=== PATIENT | male | born 1975 | race Two or more races ===

== ENCOUNTER → 2018-03-26 | Outpatient (CLI) | payer BC ==
--- NOTE | 2018-03-26 11:50 | CONS ---
CONSULTATION DATE OF SERVICE: 03/26/2019 A 42-year-old gentleman who has been evaluated in the Sleep Center for possible obstructive sleep apnea-hypopnea syndrome. 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 until 9 a.m. on working days and usually from around 11 p.m. to 8 a.m. on weekends. No problem with falling asleep. No TV in bedroom. Patient has loud snoring and witnessed episodes of stopped breathing during the sleep according to his . Positive history of choking, dry mouth and sweating, although patient usually sleeps through the night without significant amount of awakenings and no history of nocturia. No history of hypnagogic hallucinations. Patient usually does not see dreams during the sleep at night. During the day, he may feel sleepiness. [place] Sleepiness Scale significantly increased to 12. He may take naps on days off, and during the naps he may see vivid dreams. For the last 5 years, he increased his weight around 35 pounds. PAST MEDICAL HISTORY: Positive for low testosterone level. According to patient, it was in the range of 220 at that period of time, which was about 1 year ago. Patient has low sexual desire. With treatment of testosterone, 1 injection in 3 weeks patient improved his desire and increase in amount of sex from 1 to 2 per week to 4 per week and level of testosterone increased on injections. With testosterone quality, his sleep improved and he started to have episodes of morning erections, which he did not have at the time with his level of testosterone was low. MEDICATIONS: Testosterone and Ambien on a p.r.n. basis if he has problem with falling asleep. PAST SURGICAL HISTORY: Vasectomy, cyst removed from left wrist 1996. SOCIAL HISTORY: Positive for smoking for about 20 years, around half-pack a day. Presently on E- cigarettes trying to stop smoking. Alcohol consumption up to 5 times per week, scotch or whiskey. Patient trying to decrease amount of using alcohol at the present time. FAMILY HISTORY: Hypertension, heart problems, sleep apnea, snoring, thyroid problems. REVIEW OF SYSTEMS: Sweating, sleepiness during the day, snoring, witnessed episodes of stopped breathing, increasing weight. PHYSICAL EXAM: A 42-year-old gentleman without distress. BP 160/92, HR 75, RR 16, height 6, 1, weight 262.4, BMI 34.0, temperature 98.3, oxygen saturation at room air 96%/ OROPHARYNX: Moderately low position of soft palate. Slight restriction of nasal breathing. Nasoseptal deviation. Wide neck 18-1/2 inches in circumference. ABDOMEN: Slightly obese. LUNGS Clear to percussion and to auscultation. Good air exchange. No wheezing or rhonchi. HEART S1, S2 regular. No murmurs, gallops, or rubs. EXTREMITIES No clubbing or cyanosis. CARDIAC REHABILITATION SPECIALIST Awake, alert, and oriented X3. Cranial nerves 2 to 7 intact. There is no fasciculation or atrophy. noted. No focal deficits observed. IMPRESSION: 1. Snoring, witnessed episodes of stopped breathing during the sleep, restriction of nasal breathing, sleepiness. [place] Sleepiness Scale increased to 12, wide neck. Obstructive sleep apnea-hypopnea syndrome. 2. Hypertension in the office. 3. Low testosterone level on treatment with testosterone replacement. 4. Obesity, body mass index 34. 5. Nasoseptal deviation with some restriction of nasal breathing. 6. Alcohol user 4 to 5 times per week, trying to decrease amount of using alcohol. 7. Smoker for about 10 pack years, trying to decrease amount of cigarettes instead of smoking. PLAN: 1. Polysomnography for evaluation of patient's breathing during sleep. 2. CPAP/BiPAP titration if sleep study confirms obstructive sleep apnea-hypopnea syndrome. 3. Preferable position during sleep on the side. 4. No driving if patient feels any sleepiness. 5. I will see patient for follow up visit to explain results of testing and following plan. Thank you very much for referring this patient for consultation. Sincerely, Emre Molina MD, PhD, FAASM Diplomat of [place] [employer] [employer] [place] [employer] Store Specialist [facility] [place] MMODL / IJN: [id number] /
== END | disposition home or self-care (01) ==
LOC: SLEEP 10:00
PROVIDERS: ATTEND Internal Medicine
DX: G47.33 Obstructive sleep apnea (adult) (pediatric) (principal); I10 Essential (primary) hypertension; E29.1 Testicular hypofunction; E66.9 Obesity, unspecified; J34.2 Deviated nasal septum; F17.210 Nicotine dependence, cigarettes, uncomplicated; Z79.899 Other long term (current) drug therapy; Z72.89 Other problems related to lifestyle; Z68.34 Body mass index [BMI] 34.0-34.9, adult
CPT/HCPCS: 99211

== ENCOUNTER → 2019-08-20 | Outpatient (CLI) | payer BC ==
--- NOTE | 2019-08-20 16:46 | PN ---
PROGRESS NOTE DATE OF SERVICE: 08/20/2019 This patient is a 44-year-old gentleman who has been followed in the sleep center for treatment of obstructive sleep apnea-hypopnea syndrome. During the last year the patient had a polysomnogram which showed that he has obstructive sleep apnea with apnea-hypopnea index 12.0 and oxygen desaturation to 84.5%. Then the patient had titration, and the recommended level of pressure was 10 cm of water. For different reasons, the patient was not able to get a CPAP unit at that time. At present he continues to have difficulties sleeping, has multiple awakenings from sleep, has sleepiness during the day. [place] Sleepiness Scale today is 18. MEDICATIONS: Testosterone and Ambien. PHYSICAL EXAMINATION: GENERAL: A pleasant patient in no distress. VITAL SIGNS: BP 155/99, HR 75, RR 16. Height 6 feet 1/2 inch, weight 288.4 pounds, body mass index 38.7, temperature 98.2, oxygen saturation at room air 95%. HEENT: PERRLA, EOMI. Evaluation of oropharynx showed tongue protrudes midline. Mallampati II to III. NECK: Supple. No JVD. Thyroid is not palpable. LUNGS: Clear to percussion and to auscultation. Good air exchange. No wheezing or rhonchi. HEART: S1, S2 regular. No murmurs, gallops or rubs. ABDOMEN: Slightly obese. EXTREMITIES: No clubbing or cyanosis. BUDGET EXAMINER: Awake, alert, and oriented X3. Cranial nerves 2 to 7 intact. There is no fasciculation or atrophy. noted. No focal deficits observed. IMPRESSION: 1. Obstructive sleep apnea-hypopnea syndrome by results of polysomnogram in 2018. Patient continues to have problems with multiple awakenings from sleep, excessive daytime sleepiness. [place] Sleepiness Scale is significantly increased at 18. 2. Hypertension in the office today. 3. History of low testosterone level, on treatment with testosterone replacement. 4. Obesity. 5. Nasal septum deviation. PLAN: 1. Prescription for treatment with CPAP with a pressure of 10 cm of water. 2. Patient should start using CPAP equipment every night for the whole night. 3. Losing weight. 4. Sleep hygiene with regular time in bed for at least 7-1/2 to 8 hours. 5. I will see patient for follow-up visit in 30-90 days to evaluate clinical response on treatment, compliance with treatment, and to make any necessary adjustments related to mask fitting, pressure and humidification. Thank you very much for allowing me to participate in the management of your patient. Sincerely, Emre Molina MD, PhD, FAASM Diplomat of [place] [employer] [place] [employer] Cabinet Mounter [facility] [place] MMERNIEL / ISAÍASN: [id number] /
== END | disposition home or self-care (01) ==
LOC: SLEEP 14:18
PROVIDERS: ATTEND Internal Medicine
DX: G47.33 Obstructive sleep apnea (adult) (pediatric) (principal); I10 Essential (primary) hypertension; E66.9 Obesity, unspecified; J34.2 Deviated nasal septum; Z68.38 Body mass index [BMI] 38.0-38.9, adult; Z86.39 Personal history of other endocrine, nutritional and metabolic disease; Z79.899 Other long term (current) drug therapy

== ENCOUNTER 2019-10-08 21:55 | Emergency (ER) | payer BC ==
[2019-10-08 22:02] VITALS: BP 148/86; PULSE 92; RESP 20; TEMP 97.7
[2019-10-08] MEDS ORDERED: SODIUM CHLORIDE 0.9% 1,000 ML IV STA (22:56)
[2019-10-08] MEDS ORDERED: KETOROLAC 30 MG/ML 1 ML VIAL IVP STA (22:56)
--- NOTE | 2019-10-08 23:11 | ED ---
Abdominal Pain HPI - General Chief Complaint: Abdominal Pain Stated Complaint: abd pain Time Seen by Provider: 10/08/19 22:25 Source: patient Mode of arrival: ambulatory Limitations: no limitations - History of Present Illness Initial Comments: Patient is a 44-year-old male presenting to emergency Department with complaints of abdominal pain as well as nausea for 2 days. Patient states he noticed nausea 2 days ago along with a fever. Patient states he went home from work that day and slept. Yesterday he was feeling better although some mild abdom inal discomfort. Patient states this morning he's been having constant didn't upper and lower right-sided abdominal pain. Patient states it is very sharp in nature. He states when he stands up it is worse, pain improves when he sits or hunches over. Patient denies any abdominal surgeries. He's been having regular bowel movements. He denies fever today, nausea, vomiting, diarrhea. He denies chest pain, shortness of breath. He has no other complaints at this time. Upon arrival to the ER, vital signs are stable. - Related Data Allergies Allergy/AdvReac Type Severity Reaction Status Date / Time No Known Allergies Allergy Verified 10/08/19 22:03 Review of Systems ROS Statement: Those systems with pertinent positive or pertinent negative responses have been documented in the HPI. ROS Other: All systems not noted in ROS Statement are negative. Past Medical History Past Medical History: No Reported History History of Any Multi-Drug Resistant Organisms: None Reported Past Surgical History: Orthopedic Surgery Additional Past Surgical History / Comment(s): lt wrist, vasectomy Smoking Status: Never smoker Past Alcohol Use History: Daily Past Drug Use History: None Reported General Exam - General Exam Comments Initial Comments: GENERAL: Well-appearing, well-nourished and in no acute distress. HEAD: Atraumatic, normocephalic. EYES: Pupils equal round and reactive to light, extraocular movements intact, sclera anicteric, conjunctiva are normal. ENT: TMs normal, nares patent, oropharynx clear without exudates. Moist mucous membranes. NECK: Normal range of motion, supple without lymphadenopathy or JVD. LUNGS: Breath sounds clear to auscultation bilaterally and equal. No wheezes rales or rhonchi. HEART: Regular rate and rhythm without murmurs, rubs or gallops. ABDOMEN: Tender to palpation of the right lower and right upper quadrants. Positive guarding. Soft, normoactive bowel sounds. No rebound. No masses appreciated. : Deferred EXTREMITIES: Normal range of motion, no pitting or edema. No clubbing or cyanosis. NEUROLOGICAL: Normal speech, normal gait. PSYCH: Normal mood, normal affect. SKIN: Warm, Dry, normal turgor, no rashes or lesions noted. Limitations: no limitations Course Vital Signs 10/08/19 22:00 Temperature 97.7 F Pulse Rate 92 Respiratory 20 Rate Blood Pressure 148/86 O2 Sat by Pulse 99 Oximetry Medical Decision Making - Medical Decision Making Patient is a 44-year-old male presenting with right upper and right lower abdominal pain as well as nausea and recent fever for 2 days. Vitals are stable upon arrival. Lab work shows elevation in total bilirubin at 2.6, AST slightly elevated at 106. No other acute abnormalities. Urine is normal. Computed tomography scan shows no abnormalities, no signs of cholecystitis or appendicitis. I discussed these findings with the patient. Patient was given fluids and Toradol and has been very comfortable since arrival. I discussed with patient that his symptoms could be related to biliary colic. Recommended follow up with GI doctor. He is in agreement this plan of care. He is stable for discharge. Return parameters were discussed with the patient and he verbalized understanding. - Lab Data Result diagrams: 10/08/19 22:57 10/08/19 22:57 Lab Results 10/08/19 10/08/19 10/08/19 Range/Units 22:57 22:57 22:57 WBC 6.9 (3.8-10.6) k/uL RBC 5.05 (4.30-5.90) m/uL Hgb 15.8 (13.0-17.5) gm/dL Hct 46.1 (39.0-53.0) % MCV 91.3 (80.0-100.0) fL MCH 31.3 (25.0-35.0) pg MCHC 34.3 (31.0-37.0) g/dL RDW 12.7 (11.5-15.5) % Plt Count 217 (150-450) k/uL Neutrophils % 72 % Lymphocytes % 15 % Monocytes % 9 % Eosinophils % 2 % Basophils % 1 % Neutrophils # 4.9 (1.3-7.7) k/uL Lymphocytes # 1.1 (1.0-4.8) k/uL Monocytes # 0.6 (0-1.0) k/uL Eosinophils # 0.1 (0-0.7) k/uL Basophils # 0.1 (0-0.2) k/uL Sodium 137 (137-145) mmol/L Potassium (3.5-5.1) mmol/L Chloride 103 (98-107) mmol/L Carbon Dioxide 22 (22-30) mmol/L Anion Gap 12 mmol/L BUN 12 (9-20) mg/dL Creatinine 1.00 (0.66-1.25) mg/dL Est GFR (CKD-EPI)AfAm >90 (>60 ml/min/1.73 sqM) Est GFR (CKD-EPI)NonAf >90 (>60 ml/min/1.73 sqM) Glucose 93 (74-99) mg/dL Plasma Lactic Acid Pan[place] 0.9 (0.7-2.0) mmol/L Calcium 8.2 L (8.4-10.2) mg/dL Total Bilirubin 2.6 H (0.2-1.3) mg/dL AST 106 H (17-59) U/L ALT 43 (4-49) U/L Alkaline Phosphatase 40 (38-126) U/L Total Protein 8.9 H (6.3-8.2) g/dL Albumin 5.3 H (3.5-5.0) g/dL Amylase 70 (30-110) U/L Lipase 105 (23-300) U/L Urine Color Urine Appearance (Clear) Urine pH (5.0-8.0) Ur Specific [place] (1.001-1.035) Urine Protein (Negative) Urine Glucose (UA) (Negative) Urine Ketones (Negative) Urine Blood (Negative) Urine Nitrite (Negative) Urine Bilirubin (Negative) Urine Urobilinogen (<2.0) mg/dL Ur Leukocyte Esterase (Negative) 10/09/19 Range/Units 00:37 WBC (3.8-10.6) k/uL RBC (4.30-5.90) m/uL Hgb (13.0-17.5) gm/dL Hct (39.0-53.0) % MCV (80.0-100.0) fL MCH (25.0-35.0) pg MCHC (31.0-37.0) g/dL RDW (11.5-15.5) % Plt Count (150-450) k/uL Neutrophils % % Lymphocytes % % Monocytes % % Eosinophils % % Basophils % % Neutrophils # (1.3-7.7) k/uL Lymphocytes # (1.0-4.8) k/uL Monocytes # (0-1.0) k/uL Eosinophils # (0-0.7) k/uL Basophils # (0-0.2) k/uL Sodium (137-145) mmol/L Potassium (3.5-5.1) mmol/L Chloride (98-107) mmol/L Carbon Dioxide (22-30) mmol/L Anion Gap mmol/L BUN (9-20) mg/dL Creatinine (0.66-1.25) mg/dL Est GFR (CKD-EPI)AfAm (>60 ml/min/1.73 sqM) Est GFR (CKD-EPI)NonAf (>60 ml/min/1.73 sqM) Glucose (74-99) mg/dL Plasma Lactic Acid [place] (0.7-2.0) mmol/L Calcium (8.4-10.2) mg/dL Total Bilirubin (0.2-1.3) mg/dL AST (17-59) U/L ALT (4-49) U/L Alkaline Phosphatase (38-126) U/L Total Protein (6.3-8.2) g/dL Albumin (3.5-5.0) g/dL Amylase (30-110) U/L Lipase (23-300) U/L Urine Color Yellow Urine Appearance Clear (Clear) Urine pH 6.0 (5.0-8.0) Ur Specific [place] >1.050 H (1.001-1.035) Urine Protein Trace H (Negative) Urine Glucose (UA) Negative (Negative) Urine Ketones Trace H (Negative) Urine Blood Negative (Negative) Urine Nitrite Negative (Negative) Urine Bilirubin Negative (Negative) Urine Urobilinogen <2.0 (<2.0) mg/dL Ur Leukocyte Esterase Negative (Negative) Disposition Clinical Impression: Abdominal pain, Biliary colic Disposition: HOME SELF-CARE Condition: Stable Instructions (If sedation given, give patient instructions): Biliary Colic (ED) Additional Instructions: Please return to the Emergency Department if symptoms worsen or any other concerns. Recommended trial of BRAT diet, limit fatty foods as well as sugary drinks. Follow up with GI doctor as discussed. Is patient prescribed a controlled substance at d/c from ED?: No Referrals: Ledy Molina MD [Primary Care Provider] - 1-2 days Sweetie Lawrence MD [STAFF PHYSICIAN] - 1-2 days
--- NOTE | 2019-10-08 23:59 | CT ---
EXAMINATION TYPE: CT abdomen pelvis w con DATE OF EXAM: 10/08/2019 COMPARISON: None HISTORY: RUQ/RLQ Pain CT DLP: 1913.9 mGycm Automated exposure control for dose reduction was used. CONTRAST: Performed with IV Contrast, patient injected with 100 mL of Isovue 300. Multiple axial sections were obtained from the diaphragm to the floor the pelvis with intravenous con trast Isovue 100 mL. Lung bases are clear. There is no pleural effusion. Heart size is normal. There is no pericardial eff usion. Stomach is intact. Liver spleen pancreas gallbladder appear normal. Bile ducts are not dilated. There is no adrenal mass. Kidneys show satisfactory contrast opacification. There is no hydronephrosi s. Appendix appears normal. There is no mesenteric edema. There is no ascites or free air. There is no sign of a bowel obstructio n. Bladder distends smoothly. There is no inguinal hernia. There are sigmoid diverticula without sign of diverticulitis. There is no evidence of pelvic mass. There is no mesenteric edema. There is no ascites or free air. There is no sign of bowel obstruction. Lumbar vertebra have normal alignment. Posterior elements are intact. There is no compression fractur e. Bony pelvis is intact. There is mild anterior spurring at L5-S1. IMPRESSION: Negative CT scan abdomen and pelvis. Normal appendix.
[2019-10-09] LABS: Basophils # (A) 0.1 k/uL (0-0.2); Basophils % (A) 1 %; Eosinophils # (A) 0.1 k/uL (0-0.7); Eosinophils % (A) 2 %; HCT 46.1 % (39.0-53.0); HGB 15.8 gm/dL (13.0-17.5); Lymphocytes # (A) 1.1 k/uL (1.0-4.8); Lymphocytes % (A) 15 %; MCH 31.3 pg (25.0-35.0); MCHC 34.3 g/dL (31.0-37.0); MCV 91.3 fL (80.0-100.0); Mean Platelet Volume 8.2; Monocytes # (A) 0.6 k/uL (0-1.0); Monocytes % (A) 9 %; Neutrophils # (A) 4.9 k/uL (1.3-7.7); Neutrophils % (A) 72 %; Platelet Count 217 k/uL (150-450); RBC 5.05 m/uL (4.30-5.90); RDW 12.7 % (11.5-15.5); WBC 6.9 k/uL (3.8-10.6)
[2019-10-09 00:12] LABS: ALT 43 U/L (4-49); AST 106 U/L (17-59); African American GFR (CKD) >90 (>60 ml/min/1.73 sqM); Albumin 5.3 g/dL (3.5-5.0); Alkaline Phosphatase 40 U/L (38-126); Amylase 70 U/L (30-110); Anion Gap 12 mmol/L; Blood Urea Nitrogen 12 mg/dL (9-20); Calcium 8.2 mg/dL (8.4-10.2); Carbon Dioxide 22 mmol/L (22-30); Chloride 103 mmol/L (98-107); Glucose 93 mg/dL (74-99); Non-African American GFR(CKD) >90 (>60 ml/min/1.73 sqM); Sodium 137 mmol/L (137-145); Total Bilirubin 2.6 mg/dL (0.2-1.3); Total Protein 8.9 g/dL (6.3-8.2)
[2019-10-09 00:47] LABS: Appearance,Urine Clear (Clear); Bilirubin,Urine Negative (Negative); Blood,Urine Negative (Negative); Color,Urine Yellow; Glucose,Urine (UA) Negative (Negative); Ketones,Urine Trace (Negative); Leukocyte Esterase,Urine Negative (Negative); Nitrite,Urine Negative (Negative); Protein,Urine Trace (Negative); Urobilinogen,Urine <2.0 mg/dL (<2.0)
[2019-10-09 01:03] LABS: Specific Gravity,Urine >1.050 (1.001-1.035)
== END 2019-10-09 01:59 | disposition home or self-care (01) ==
LOC: EC 21:55
DX: K80.50 Calculus of bile duct without cholangitis or cholecystitis without obstruction (principal); R74.0 Nonspecific elevation of levels of transaminase and lactic acid dehydrogenase [LDH]; R50.9 Fever, unspecified
CPT/HCPCS: 36415; 80053; 82150; 83605; 83690; 85025; 81003; 74177; 99284; 96374; 96361 ×3; J1885; Q9967; 85610; 85730

== ENCOUNTER → 2020-05-19 | Outpatient (CLI) | payer BC ==
[2020-05-19 10:28] LABS: HCT 49.2 % (39.0-53.0); HGB 16.2 gm/dL (13.0-17.5); MCH 30.1 pg (25.0-35.0); MCHC 32.9 g/dL (31.0-37.0); MCV 91.4 fL (80.0-100.0); Mean Platelet Volume 8.4; Platelet Count 199 k/uL (150-450); RBC 5.38 m/uL (4.30-5.90); WBC 4.7 k/uL (3.8-10.6)
[2020-05-19 16:15] LABS: African American GFR (CKD) 71.3 (60.0-200.0); Albumin 4.8 g/dL (3.80-4.90); Anion Gap 8.3 mmol/L (4.00-12.00); BUN/Creat Ratio 8.57 Ratio (12.00-20.00); Calcium 9.9 mg/dL (8.7-10.3); Carbon Dioxide 25.7 mmol/L (21.6-31.8); Chol/HDL Ratio 5.91; Globulin 2.4 g/dL (1.6-3.3); Non-African American GFR(CKD) 61.5 (60.0-200.0); Potassium 4.5 mmol/L (3.5-5.5); Total Bilirubin 0.9 mg/dL (0.3-1.2); Total Protein 7.2 g/dL (6.2-8.2)
[2020-05-19 16:27] LABS: Prostate Specific Antigen 0.2 ng/mL (0.0-2.5)
== END | disposition home or self-care (01) ==
LOC: LABWHC1 09:32
PROVIDERS: ATTEND Urology
DX: N40.1 Benign prostatic hyperplasia with lower urinary tract symptoms (principal); E29.1 Testicular hypofunction
CPT/HCPCS: 36415; 80053; 80061; 84153; 84403; 85027

== ENCOUNTER → 2020-06-16 | Outpatient (CLI) | payer BC ==
--- NOTE | 2020-06-17 05:58 | SFUN ---
SLEEP CENTER FOLLOW UP NOTE DATE OF SERVICE: 06/16/2020 A 44-year-old gentleman has been followed in Sleep Center for treatment of obstructive sleep apnea-hypopnea syndrome. I discussed with the patient results of home sleep apnea test which showed severe obstructive sleep apnea with apnea-hypopnea index 32.9. The patient was started on treatment with CPAP. I checked CPAP unit. Usage for the last 223 nights is 117 nights and 126 nights was more than 4 hours. CPAP pressure 10 cm of water. Leak is 22 L/minute, which is slightly high. Sometimes patient feels dryness in the mouth. Apnea-hypopnea index is 1.3, which is normal. MEDICATIONS: None. PHYSICAL EXAMINATION: GENERAL: A gentleman without distress. VITAL SIGNS: BP 165/92, HR 65, RR 14, weight 294, temp 98.1, oxygen saturation at room air 100%. [place] Sleepiness Scale increased to 13. HEENT: PERRLA, EOMI. Oropharynx moderately low position of soft palate. Mallampati 3. NECK: Supple, no JVD. Thyroid is not palpable. LUNGS: Clear to percussion and to auscultation. Good air exchange. No wheezing or rhonchi. HEART: S1, S2 regular. No murmurs, gallops, or rubs. ABDOMEN: Obese. EXTREMITIES: No clubbing or cyanosis. VICE PRESIDENT OF TALENT MANAGEMENT: Awake, alert, and oriented X3. Cranial nerves 2 to 7 intact. There is no fasciculation or atrophy. noted. No focal deficits observed. IMPRESSION: 1. Severe obstructive sleep apnea-hypopnea syndrome by results of home sleep test. The patient respiration normalized on treatment with CPAP. 2. Obesity. 3. History of posttraumatic stress disorder. 4. History of low testosterone. 5. Hypertension. Blood pressure increased in the office today. 6. Some nasal septum deviation. PLAN: 1. Patient will continue to use PAP equipment every night for the whole night. 2. Sleep hygiene with regular time in bed for at least 7-1/2 to 8 hours. 3. Precautions related to driving. No driving if feeling sleepiness. 4. I will maintain all necessary prescription for PAP supplies including mask, tube, filters. 5. Watching weight. 6. No driving if feeling sleepiness. 7. Follow-up visit in 6 months or earlier if patient has any problems. 8. A prescription for chin strap. Thank you very much for allowing me to participate in management of your patient. Sincerely, Emre Molina MD, PhD, FAASM Diplomat of [place] [employer] [place] [employer] Poultry Slaughterer of [facility] [place] CRISTIAN / PADMINI: [id number] /
== END | disposition home or self-care (01) ==
LOC: SLEEP 14:00
PROVIDERS: ATTEND Internal Medicine
DX: G47.33 Obstructive sleep apnea (adult) (pediatric) (principal); E66.9 Obesity, unspecified; I10 Essential (primary) hypertension; J34.2 Deviated nasal septum; R86.1 Abnormal level of hormones in specimens from male genital organs; Z99.89 Dependence on other enabling machines and devices; Z86.59 Personal history of other mental and behavioral disorders

== ENCOUNTER → 2022-12-27 | Outpatient (CLI) | payer BC ==
--- NOTE | 2022-12-27 15:47 | US ---
EXAMINATION TYPE: US thyroid st tissue head/neck DATE OF EXAM: 12/27/2022 COMPARISON: NONE CLINICAL HISTORY: E06.3 AUTOIMMUNE THYROIDITIS. 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 IMPRESSION: 1. No discrete nodules evident. There is heterogeneity to the thyroid lobes.
== END | disposition home or self-care (01) ==
LOC: RADUSWWP 14:19
PROVIDERS: ATTEND Family Medicine
DX: E06.3 Autoimmune thyroiditis (principal)
CPT/HCPCS: 76536